=== PATIENT | female | born 1960 | race Caucasian/White ===

== ENCOUNTER → 2017-01-25 | Outpatient (CLI) | payer OTHER ==
[~2017-01-25] MED LIST: ASMIN/60 INH; ASPI-232 PO; CICL8SOL4 TOP; CLR10 PO; COEN1CAP17 PEG; COEN1CAP28 PO; FISH1CAP3 PO; GLUC10007 PO; HYDR2.5L TOP; LEVO137T3 PO; MELO7.5T5 PO; MULT-225 PO; OXYC-57 PO; ROPI1TAB PO; ROPI2TAB6 PO; TRIA1SPR4; VGFVS/24 VAGRING; VNTHFA/IN INH; WARF2TAB PO
--- NOTE | 2017-01-31 11:18 | CODING QUERY NO DIAGNOSIS ---
TREATMENT RENDERED WITHOUT A DIAGNOSIS To promote full compliance with coding requirements relating to patient care, physician participation is requested in all cases of outside sales associate uncertainty. Please assist us with providing a diagnosis/symptom for the test(s) below: A diagnosis/symptom was not documented on your Order. A valid diagnosis/symptom is required to bill all insurances. Please remember that we are unable to code a diagnosis of rule out, probable, possible, questionable, or suspected. Tests that require a diagnosis: DOS: 01/25/17 * BIOPSY CHEST SKIN DIAGNOSIS: Provider Signature: Date: Thank you She[facility] Information Management Once completed, please kindly fax back to [phone] For questions please call [phone]
== END | disposition home or self-care (01) ==
LOC: C.PATHSPEC 17:24
PROVIDERS: ATTEND Plastic Surgery
DX: D09.9 Carcinoma in situ, unspecified (principal)

== ENCOUNTER → 2017-02-05 | Outpatient (CLI) | payer OTHER ==
--- NOTE | 2017-02-05 10:15 | DIAGNOSTIC IMAGING REPORT ---
LEFT KNEE 4 VIEWS INCLUDING BILATERAL STANDING AP VIEWS CLINICAL HISTORY: LEFT KNEE PAIN COMPARISON: 12/17/2015 DISCUSSION: There are progressive osteoarthritic changes involving the left knee with moderate medial joint compartment narrowing. There are small dorsal patellar spurs. There are no acute fractures. There are no destructive lesions. Mild mild to moderate osteophytic changes are also present on the right but to a lesser extent. IMPRESSION: Moderate progressive osteoarthritic changes involving the left knee. Electronically signed by: Manny Britt M.D. 02/05/2017 10:14 AM Dictated Date/Time: 02/05/2017 10:13 AM
== END | disposition home or self-care (01) ==
LOC: C.RDSM 08:55
PROVIDERS: ATTEND Family Medicine
DX: M17.12 Unilateral primary osteoarthritis, left knee (principal)

== ENCOUNTER 2017-08-15 08:05 | Inpatient (IN) | payer OTHER ==
[2017-07-23 09:18] VITALS: BMI 40.0
--- NOTE | 2017-07-23 10:16 | PAT Medication Instructions ---
Service Date Jul 23, 2017. Current Home Medication List Albuterol Hfa (Ventolin Hfa), 2-4 PUFFS INH Q6H PRN for Wheezing Aspirin (Aspir-81), 1 TAB PO DAILY PRN for prevention Coenzyme Q10 (Ubidecarenone) (Co Q 10), 1 TAB PEG QAM Estradiol (Vagifem), 1 TAB VAGRING WK Fish Oil-Cholecalciferol (Fish Oil + D3), 1 CAP PO QAM Glucosamine Sulfate (Glucosamine), 1,000 MG PO QAM Hydrocortisone (Topical) (Hydrocortisone), 1 APPLN TOP DAILY PRN for Itching Levothyroxine Sodium (Levothyroxine Sodium), 1 TAB PO QAM Loratadine (Claritin), 10 MG PO QAM Meloxicam (Mobic), 15 MG PO QAM Mometasone Furoate (Asmanex Twisthaler 60 Met), 2 PUFF INH QAM Multiple Vitamin (Multi-Day Vitamins), 1 TAB PO QAM Ropinirole (Requip), 2 MG PO HS Triamcinolone Acetonide (Nasal (Nasacort Allergy 24Hr), 1 SPRAY NA QAM Medication Instructions For Your Scheduled Surgery -Continue as directed: Estradiol (Vagifem), 1 TAB VAGRING WK - Hold the following medications 2 weeks prior to surgery: Coenzyme Q10 (Ubidecarenone) (Co Q 10), 1 TAB PEG QAM Fish Oil-Cholecalciferol (Fish Oil + D3), 1 CAP PO QAM Glucosamine Sulfate (Glucosamine), 1,000 MG PO QAM - Hold the following medications 5 days prior to surgery per surgeon's instructions: Meloxicam (Mobic), 15 MG PO QAM - Hold the following 24 hours prior to surgery: Hydrocortisone (Topical) (Hydrocortisone), 1 APPLN TOP DAILY PRN for Itching - Do not take after NOON the day prior to surgery: Ropinirole (Requip), 2 MG PO HS - Hold the following medications the morning of surgery: Loratadine (Claritin), 10 MG PO QAM Multiple Vitamin (Multi-Day Vitamins), 1 TAB PO QAM - Take the following medications the morning of surgery with a sip of water OTHERWISE NOTHING TO EAT OR DRINK AFTER MIDNIGHT: Albuterol Hfa (Ventolin Hfa), 2-4 PUFFS INH Q6H PRN for Wheezing (use if needed ; BRING TO HOSPITAL) Aspirin (Aspir-81), 1 TAB PO DAILY PRN for prevention Triamcinolone Acetonide (Nasal (Nasacort Allergy 24Hr), 1 SPRAY NA QAM Levothyroxine Sodium (Levothyroxine Sodium), 1 TAB PO QAM Mometasone Furoate (Asmanex Twisthaler 60 Met), 2 PUFF INH QAM - Take the following medications as scheduled the night before surgery: Albuterol Hfa (Ventolin Hfa), 2-4 PUFFS INH Q6H PRN for Wheezing If you have any questions please call us at [phone] or [phone] or [phone]
[2017-07-23 10:50] LABS: BASO % 0.8 %; BASO ABS # 0.06 K/uL (0-0.2); COMPLETE YES; EOS % 4.9 %; HEMATOCRIT 43.3 % (37-47); IG% 0.5 %; LYMPH % 33.2 %; LYMPH ABS # 2.62 K/uL (1.2-3.4); MEAN CELL VOLUME 93.1 fL (80-100); MEAN CORPUSCULAR HEMOGLOBIN 30.5 pg (25-34); MEAN CORPUSCULAR HGB CONC 32.8 g/dl (32-36); MEAN PLATELET VOLUME 10.7 fL (7.4-10.4); MONO % 4.4 %; NEUT % 56.2 %; PLATELET COUNT 288 K/uL (130-400); RED BLOOD COUNT 4.65 M/uL (4.2-5.4); WHITE BLOOD COUNT 7.88 K/uL (4.8-10.8)
[2017-07-23 10:52] LABS: URINE APPEARANCE CLEAR (CLEAR); URINE BILIRUBIN NEG (NEG); URINE COLOR YELLOW; URINE NITRITE NEG (NEG); URINE PH 6.5 (4.5-7.5); URINE SPECIFIC GRAVITY 1.011 (1.000-1.030); UROBILINOGEN NEG (NEG); ZZUR CULT IF INDIC CLEAN CATCH NO
[2017-07-23 10:53] LABS: MANUAL MICROSCOPIC REQUIRED? NO; REVIEW REQ? NO
[2017-07-23 11:00] LABS: INR 0.9 (0.9-1.1); PROTHROMBIN TIME (PATIENT) 9.4 SECONDS (9.0-12.0)
[2017-07-23 12:44] LABS: BUN/CREATININE RATIO 20.1 (10-20); CALCIUM 9.6 mg/dl (8.5-10.1); CREATININE 0.71 mg/dl (0.60-1.20); POTASSIUM 3.7 mmol/L (3.5-5.1)
--- NOTE | 2017-07-24 17:58 | HISTORY & PHYSICAL EXAMINATION ---
DATE OF ADMISSION: 08/15/2017 PREOPERATIVE HISTORY AND PHYSICAL CHIEF COMPLAINT: Left knee pain. HISTORY OF PRESENT ILLNESS: This 57-year-old white female presents to the office with complaints of left knee pain that she has had for several years. Pain has become worse over the last 6-9 months. It is worse with weightbearing. It is affecting her ADLs. She occasionally uses a cane for ambulation. She has tried oral anti-inflammatories, oral pain medications, activity modification, and assistive devices without improvement. Preoperative x-rays have been obtained. She elects to proceed with left total knee arthroplasty in hopes of alleviating her pain. PAST MEDICAL HISTORY: Significant for allergic rhinitis, osteoarthritis, asthma, hypothyroidism, history of heart murmur, sleep apnea, use of CPAP, low back pain, history of skin cancer, obesity, restless legs syndrome, polycystic ovarian disease, and sciatica. PREVIOUS SURGERIES: Squamous cell excision from her chest, eye duct surgery, appendectomy, colonoscopy, and wisdom tooth extraction. FAMILY HISTORY: Significant for asthma, skin cancer, heart disease, history of CABG in her father, colon cancer, diabetes, hypertension, hypothyroidism, macular degeneration, and arthritis. SOCIAL HISTORY: The patient is employed at [employer]. No tobacco use, occasional ETOH use. . ALLERGIES: KNOWN ALLERGY TO ACCOLATE, AMOXICILLIN AND PENICILLIN WHICH CAUSED A PUFFY SENSATION IN HER LIPS. She states that resolves by drinking water. ALSO, NICKEL ALLERGY AND FLONASE ALLERGY. She states propofol was not effective for her during her colonoscopy. CURRENT MEDICATIONS: Synthroid 137 mcg p.o. every other day, Asmanex Twisthaler 1 inhalation twice a day, Meloxicam 15 mg p.o. daily, ropinirole 2 mg 1 tablet p.o. daily before bedtime, Singulair 10 mg p.o. q.p.m., loratadine 10 mg p.o. daily, albuterol inhaler 2 puffs 4 times a day as needed, topical estradiol vaginal tablet as directed, Nasacort Allergy 1 spray in each nostril daily, lorazepam 2 mg p.o. daily p.r.n., hydrocortisone topical 2.5% cream applied topically daily p.r.n., aspirin 81 mg p.o. daily, and vitamin D daily. REVIEW OF SYSTEMS: Significant for above-stated conditions, otherwise unremarkable. PHYSICAL EXAMINATION: GENERAL: Well-developed, well-nourished middle aged white female, in no acute distress. Sitting in a chair. Alert and oriented. SKIN: Warm and dry with good turgor. No rashes or lesions. No ecchymosis or erythema. HEENT: Normocephalic, atraumatic. EYES: PERRLA, EOMI. Nares patent bilaterally without turbinate enlargement. Oropharynx without erythema or exudate. No lesions noted. Uvula midline. Oral mucosa moist. Good dentition. HEART: RRR, soft. 2/6 systolic ejection murmur noted along the left sternal border. No gallops or rubs. LUNGS: Clear to auscultation bilaterally. No crackles, rhonchi or wheezing. Good air movement. ABDOMEN: Bowel sounds present x4, soft, nontender. No organomegaly. No masses. MUSCULOSKELETAL: Left knee has no intraarticular effusion. She lacks approximately 4-5 degrees of terminal extension. Flexion to greater than 100 degrees. Strength is 5/5 with fair quad tone. No defect in the patellar tendon or quadriceps tendon. Stable collateral ligaments. Varus alignment. Ambulatory with a moderately antalgic gait. NEUROLOGIC: Cranial nerves II through XII are intact. Gross sensation is intact across the lower extremities by soft touch. DATA: Radiographic imaging previously obtained shows degenerative joint disease of the left knee. Periarticular osteophytes, subchondral sclerosis, and joint space narrowing are all present. IMPRESSION: Left knee end-stage degenerative joint disease. PLAN: Informed written consent to proceed with left total knee arthroplasty will be obtained on the day of surgery. Consent form has already been reviewed. She has a possible ALLERGY TO NICKEL AND STAINLESS STEEL. We will use Oxinium implants. She will obtain medical clearance from her PCP. Preoperative lab work, EKG, and chest x-ray have been ordered. We did discuss her mild localized reaction to penicillin in the past. I do think Ancef would be reasonable. This was discussed with her. She does take Requip at night. She would like to use her own prescription while in the hospital. Order can be written. She may require an extra dosing of 1 mg throughout the day due to her prolonged confinement in bed. We also discussed this. Anticipate discharge to home with 2 weeks of home health services. She already has a walker, cane, and raised toilet seat.
[~2017-08-15] VITALS: Ht 160 cm; Wt 103.3 kg
[2017-08-15] VITALS (7 sets, daily range): BP systolic 112–161; BP diastolic 71–91; PULSE 60–86; TEMP 36.6–37; O2SAT 91–97; Ht 160 cm; Wt 103.3 kg
[~2017-08-15 08:05] MED LIST changes: +BUPIVACAINE 0.5 % 5 MG/1 ML PF 10ML VIAL ONE; +CEFAZOLIN 2000 MG/60 ML D5W 60 ML IV SCH; -CICL8SOL4 TOP; -COEN1CAP28 PO; +LACTATED RINGER'S 1000ML 1,000 ML IV SCH; +LACTATED RINGER'S 1000ML 500 ML IV ONE; +LACTATED RINGER'S 1000ML IV SCH; -OXYC-57 PO; -ROPI1TAB PO; +ROPIVACAINE 5MG/ML 30 ML 150 MG, BUPIVACAINE/EPINEPHR 0.5% MPF 30 ML, KETOROLAC TROMETH... INFIL SCH; +TRANEXAMIC ACID AMP 1,000 MG in NSS 100ML IV SCH; -WARF2TAB PO; +[UNRECOGNIZED DRUG - REMARK] SCH
--- NOTE | 2017-08-15 08:20 | History & Physical Bridge Note ---
H&P Re-Evaluation Bridge Note: I have examined the patient, reviewed the History & Physical and in the interval since the performance of the History & Physical I have noted the following changes of clinical significance:consent reviewed. No changes noted
[2017-08-15] MEDS ORDERED: COEN1CAP28 PO (08:42)
[2017-08-15] MEDS ORDERED: ROPI1TAB PO (08:47)
[2017-08-15] MEDS ORDERED: CICL8SOL4 TOP (08:47)
[2017-08-15] MEDS ORDERED: LIDOCAINE HCL 2% 2 ML VIAL (20MG/ML) ONE (09:17)
[2017-08-15] MEDS ORDERED: PROPOFOL IV EMULSION 10 MG/ML 20 ML VIAL IV ONE ×4 (09:17→11:58)
[2017-08-15] MEDS ORDERED: MIDAZOLAM HCL 1 MG/ML 2ML VIAL ONE ×2 (09:17→11:08)
[2017-08-15] MEDS ORDERED: FENTANYL CITRATE INJ 50 MCG/1 ML 2 ML VIAL ONE ×2 (09:17→11:22)
[2017-08-15] MEDS ORDERED: ONDANSETRON INJ 2 MG/ML 2 ML VIAL ONE (09:17)
[2017-08-15] MEDS ORDERED: ONDANSETRON INJ 2 MG/ML 2 ML VIAL IV PRN ×2 (09:30→13:00)
[2017-08-15] MEDS ORDERED: EpHEDrine SULFATE INJ 50 MG/ML AMP IV PRN (09:30)
[2017-08-15] MEDS ORDERED: FENTANYL CITRATE INJ 50 MCG/1 ML 2 ML VIAL IV PRN (09:30)
[2017-08-15] MEDS ORDERED: ATROPINE SULFATE 0.1 MG/ML 5ML SYR IV PRN (09:30)
[2017-08-15] MEDS ORDERED: POVIDONE-IODINE OP SOLN 30 ML BTL ONE (10:45)
[2017-08-15] MEDS ORDERED: ORTHO JOINT ANESTHETIC ONE (10:45)
[2017-08-15] MEDS ORDERED: KETAMINE HCL INJ 50 MG/ML 10 ML VIAL ONE (12:04)
[2017-08-15] MEDS ORDERED: EpHEDrine SULFATE 50MG/5ML SYR ONE (12:41)
--- NOTE | 2017-08-15 12:47 | [facility] Post Operative Brief Note ---
Immediate Operative Summary Operative Date Aug 15, 2017. Pre-Operative Diagnosis Left Knee End-Stage Degenerative Joint Disease Post-Operative Diagnosis Left Knee End-Stage Degenerative Joint Disease Procedure(s) Performed Left Total Knee Arthroplasty Surgeon Dr. Richardson Resistor Coater Surgeon(s) Dr. Grimm (Fellow)/ CHAD Dorantes Estimated Blood Loss 50 ml Findings medial djd with varus Fluids (cc crystalloids) 1400cc Specimens A. Left Knee Bone and Tissue Drains none Anesthesia spinal/obturator block Complication(s) None Disposition Recovery Room / PACU
[2017-08-15] MEDS ORDERED: ALUMINUM/MAGNESIUM/SIMETH (MAALOX MAX) 30 ML UDC PO PRN (13:00)
[2017-08-15] MEDS ORDERED: METOCLOPRAMIDE HCL INJ 5 MG/ML 2 ML VIAL IV PRN (13:00)
[2017-08-15] MEDS ORDERED: ACETAMINOPHEN 325 MG TAB PO PRN (13:00)
[2017-08-15] MEDS ORDERED: ALBUTEROL HFA 8 GM INHALER INH PRN (13:00)
[2017-08-15] MEDS ORDERED: BISACODYL 10 MG SUPP PR PRN (13:00)
[2017-08-15] MEDS ORDERED: MoRPHine SULFATE 2 MG/ML CARP IV PRN (13:00)
[2017-08-15] MEDS ORDERED: MAGNESIUM HYDROXIDE SUSP 30 ML UDC PO PRN (13:00)
[2017-08-15] MEDS ORDERED: DiphenhydrAMINE HCL 50 MG/ML VIAL IV PRN (13:00)
--- NOTE | 2017-08-15 13:01 | [facility] Operative Report ---
Operative Report Operative Date Aug 15, 2017. Pre-Operative Diagnosis Left Knee End-Stage Degenerative Joint Disease Post-Operative Diagnosis Left Knee End-Stage Degenerative Joint Disease Procedure(s) Performed Left Total Knee Arthroplasty Surgeon Dr. Richardson Speeder Frame Tender Surgeon(s) Dr. Grimm (Fellow)/ CHAD Ryan Estimated Blood Loss 50 ml Findings Left knee DJD Fluids 1400cc Specimens A. Left Knee Bone and Tissue Drains none Anesthesia spinal/obturator block Complication(s) None Disposition Recovery Room / PACU Indications This 57-year-old white female presented the office with complaints of intractable left knee pain. She had tried conservative care measures including activity modification, oral pain medication, oral anti-inflammatories, and cortisone injections without relief. She elected to proceed with surgical intervention after being educated about potential risks and outcomes. Preoperative imaging was obtained. Description of Procedure Patient was administered a spinal anesthetic and then taken to the operating room where she was given sedation. She was prepped and draped in usual sterile fashion. Please see Dr. Richardson's operative report for specifics of the procedure. I was present for the entire case from initial patient positioning through final wound closure. Assistance was provided in tissue traction, hemostasis, trial implant placement, final implant placement, and final wound closure. Patient was taken to the recovery room in satisfactory condition. I attest to the content of the Intraoperative Record and any orders documented therein. Any exceptions are noted below.
--- NOTE | 2017-08-15 13:07 | OPERATIVE REPORT ---
DATE OF OPERATION: 08/15/2017 PREOPERATIVE DIAGNOSIS: Osteoarthritis with varus flexion deformity, left knee. POSTOPERATIVE DIAGNOSIS: Same. OPERATION PERFORMED: Cemented left total knee replacement using Oxinium implant by [employer]. SURGEON: Dr. Richardson. TOLL SERVICE OBSERVER: Alfa. SECOND TOLL SERVICE OBSERVER: Ja Santo PA-C. ESTIMATED BLOOD LOSS: 50 mL. CRYSTALLOID: 1400 mL. PERIOPERATIVE SITUATION: Medically cleared female with intractable knee pain has failed conservative management. She has questionable metal allergy, so it was elected to use a Journey II [employer] knee with Oxinium. PROCEDURE: The patient appropriately identified, site verified, consent verified. Antibiotics confirmed as being given, as well as TXA. The left lower extremity was prepped and draped in usual routine fashion. 44 size tourniquet was required. Tourniquet was inflated to 300 mmHg for a total of approximately 65 minutes. Midline exposure utilized. Parapatellar arthrotomy performed. Arthrotomy performed, synovectomy completed, infrapatellar contracture release. Good exposure obtained. Distal femur entered. Distal femur resected at the 0 benja. The femur was then sized to a size 4. Proximal tibia cut 9 mm off the normal side. The extension gap was excellent. Femur was then again sized to a 4, appropriate cutting block applied and the anterior and posterior condylar and chamfer cuts made, anterior cut 1, anterior cut 2, posterior cut 3, chamfer 4 and chamfer 5 completed. The flexion gap was then checked, it was excellent. The Orthomix was then injected in the posterior capsule. The box cut was then completed by inserting the trial implant and then the casing for the reaming of the box cut. The size 4 trial fit well. The size 3 tibia was then broached to a size 3 with rotation marked appropriately just on the medial third of the tubercle insertion. This allowed excellent alignment. Poly's were then trialed from 11-13, the 13 took away a little bit of hyperextension and increased mid range flexion and so that was elected to be used. The patella was then freehand cut. It was very small. I left about 15-16 mm. Seating hole was then made for the 32 patella which tracked well. All trial implants were then removed. The wound was irrigated copiously with Betadine Pulsavac, Orthomix was then injected. Cement was then mixed and the permanents cemented into position, tibia first, followed by femur, followed by reduction with trial spacer, followed by the patella. After 12 minutes, the tourniquet deflated. After 14 minutes the knee was then irrigated and minor bleeding controlled with electrocautery. The knee was then ranged. It was stable in all planes. The knee was then dislocated. The trial poly removed, the permanent poly seated and clicked into position. Excellent stability was obtained. Excellent reduction obtained and the patella tracked well. The wound was irrigated one final time with Betadine Pulsavac and then closed with #1 Ethibond, #1 Vicryl, 2-0 Vicryl and stainless steel clips. Appropriate dressing applied. DVT prophylaxis will be with Coumadin. SUMMARY OF IMPLANTS: Journey II [employer] total knee arthroplasty, left Oxinium size 4 femur, size 3 tibia, size 13 poly posterior cruciate substituting and patella size 32. Two bags of Palacos G cement. I attest to the content of the Intraoperative Record and any orders documented therein. Any exception s are noted below.
--- NOTE | 2017-08-15 13:31 | DIAGNOSTIC IMAGING REPORT ---
TWO VIEWS LEFT KNEE CLINICAL HISTORY: Postoperative examination. FINDINGS: AP and crosstable lateral portable views of the left knee are obtained. A left knee arthroplasty is in near anatomic alignment. There has been undersurface remodeling of the patella. No acute fracture is seen. There are expected postoperative changes around the knee including skin clips, soft tissue edema, and subcutaneous gas. IMPRESSION: Expected postoperative changes status post left knee arthroplasty. No acute fracture is seen. Electronically signed by: Jared Dowell M.D. 08/15/2017 1:29 PM Dictated Date/Time: 08/15/2017 1:29 PM
--- NOTE | 2017-08-15 13:37 | Anesthesiology Progress Note ---
Anesthesia Post Op Note Date & Time Aug 15, 2017 at 13:36 Vital Signs Pain Intensity: 0 Vital Signs Past 12 Hours Date Time Temp Pulse Resp B/P (MAP) Pulse Ox O2 Delivery O2 Flow Rate FiO2 08/15/17 13:30 62 16 104/66 99 Nasal Cannula 2 08/15/17 13:25 60 17 108/76 99 Nasal Cannula 2 08/15/17 13:15 70 17 123/69 99 Nasal Cannula 2 08/15/17 13:05 68 15 118/74 98 Nasal Cannula 2 08/15/17 12:56 36.7 70 13 122/81 98 Nasal Cannula 2 08/15/17 08:25 37 86 20 161/91 96 Room Air Notes Mental Status: alert / awake / arousable, participated in evaluation Pt Amnestic to Procedure: Yes Nausea / Vomiting: adequately controlled Pain: adequately controlled Airway Patency, RR, SpO2: stable & adequate BP & HR: stable & adequate Hydration State: stable & adequate Neuraxial Anesthesia: was administered, sensory block is resolving Anesthetic Complications: no major complications apparent
--- NOTE | 2017-08-15 13:44 | Progress Note ---
Progress Note Date of Service Aug 15, 2017. Progress Note Postop check patient seen in recovery room. She denies chest pain shortness breath fever chills nausea vomiting or headache. Vital signs stable afebrile. Calves nontender has slight movement in her lower extremities indicating the spinal was wearing off. Postop x-rays look excellent. Assessment doing well status post total knee replacement left lower extremity. Continue with care pathway. Dictated not read.
[2017-08-15] MEDS ORDERED: MoRPHine SULFATE 4 MG/ML 1 ML CARP\\VIAL IV PRN (15:00)
[2017-08-15] MEDS ORDERED: D5W AND 1/2NSS + 20MEQ KCL 1,000 ML IV SCH (15:30)
[2017-08-15] MEDS ORDERED: NURSING VERBAL MED ORDER ONE ×2 (15:30→20:30)
[2017-08-15] MEDS ORDERED: TRANEXAMIC ACID INJ 1,000 MG in SODIUM CHLORIDE 0.9% 100ML 100 ML IV SCH (16:00)
[2017-08-15] MEDS: ROPINIROLE HCL 1 MG TAB PO SCH ×2 (17:59→23:03)
[2017-08-15] MEDS: FERROUS GLUCONATE 324 MG TAB PO SCH (18:01)
[2017-08-15] MEDS: KETOROLAC TROMETHAMINE 30 MG/ML VIAL IV. SCH ×2 (18:02→23:26)
[2017-08-15] MEDS: CEFAZOLIN IV 2,000 MG in DEXTROSE 5% 50ML 50 ML IV SCH (20:23)
[2017-08-15] MEDS: DOCUSATE SODIUM 100 MG CAP PO SCH (20:23)
[2017-08-16 03:08] VITALS: BP 106/69; PULSE 64; TEMP 36.5; O2SAT 93
[2017-08-16] MEDS: CEFAZOLIN IV 2,000 MG in DEXTROSE 5% 50ML 50 ML IV SCH (03:08)
[2017-08-16] MEDS: LEVOTHYROXINE 137 MCG TAB PO SCH (05:40)
[2017-08-16] MEDS: KETOROLAC TROMETHAMINE 30 MG/ML VIAL IV. SCH ×2 (05:40→11:40)
--- NOTE | 2017-08-16 07:15 | PROGRESS NOTE ---
DATE: 08/16/2017 HISTORY OF PRESENT ILLNESS: Postop day #1, status post left total knee replacement. The patient denies any chest pain, shortness of breath, fever, chills, nausea, vomiting or headache. States she slipped her usual fashion, which is not very good based on her sleep apnea, uses a CPAP machine. She states her pain is well managed. PHYSICAL EXAMINATION: Vital signs are stable. She is afebrile. Neurovascular check femoral sciatic nerve is normal. Wound dressing clean, dry and intact. Calves nontender bilaterally. LABORATORY DATA: A.m. labs are pending. ASSESSMENT AND PLAN: Doing well status post left total knee replacement. Physical therapy, occupational therapy this morning and potential discharge later today if she does well. [place] environmental services manager to evaluate. Discharge on 4 mg Coumadin if INR is less than 1.5, 2 mg of INR is greater than 1.5. Potential discharge later today. Conditional on how well she does with physical therapy, occupational therapy.
[2017-08-16 07:20] VITALS: BP 97/61; PULSE 64; TEMP 36.6; O2SAT 95
--- NOTE | 2017-08-16 07:21 | DISCHARGE SUMMARY ---
CHIEF COMPLAINT: Left knee pain. HISTORY OF PRESENT ILLNESS: A 57-year-old female admitted for elective left total knee replacement. She notes that her hospital course has been relatively uneventful. She denies any chest pain, shortness of breath, fever, chills, nausea or vomiting. PAST MEDICAL HISTORY: Remarkable for allergic rhinitis, osteoarthritis, hypothyroidism, heart murmur, sleep apnea, uses CPAP, skin cancer, obesity, restless leg syndrome, polycystic ovarian disease and sciatica. PAST SURGICAL HISTORY: Include squamous cell excision from her chest, eye duct surgery, appendectomy, colonoscopy and wisdom tooth extraction. FAMILY HISTORY: Remarkable for asthma, skin cancer, heart disease, history of coronary artery disease, colon cancer, diabetes, hypertension, hypothyroidism, macular degeneration and arthritis. SOCIAL HISTORY: Reveals the patient is an employee of [employer]. No tobacco or major alcohol use. She is . ALLERGIES: ACCOLATE, AMOXICILLIN, PENICILLIN WHICH CAUSES POPPING SENSATION IN HER LIPS. SHE ALSO NOTES THAT SHE HAS A NICKEL ALLERGY AND FLONASE ALLERGY. She states propofol was not effective during her colonoscopy. PREOPERATIVE MEDICATIONS: Include Synthroid, Asmanex, Meloxicam, ropinirole, Singulair, loratadine, albuterol, estradiol, Nasacort, lorazepam, hydrocortisone topical cream p.r.n., aspirin 81 mg daily, and vitamin D. She will discontinue the Meloxicam and add p.r.n. narcotic see prescription and Coumadin to keep INR 1.8-2.2. She will be discharged on 4 mg if INR is less than 1.5 and 2 mg if INR is greater than 1.5. REVIEW OF SYSTEMS: Noncontributory. ASSESSMENT AND PLAN: Doing reasonably well status post left total knee replacement. She is a little bit insecure about going home today. We will see how she does with physical therapy, occupational therapy and if she does well enough, she can be discharged later today. [place] services[place] Discharge on 4 mg Coumadin if INR is less than 1.5 and 2 mg if INR is greater than 1.5. MTDD
[2017-08-16 07:29] LABS: HEMATOCRIT 36.5 % (37-47); MEAN CELL VOLUME 91.3 fL (80-100); MEAN CORPUSCULAR HEMOGLOBIN 29.8 pg (25-34); MEAN CORPUSCULAR HGB CONC 32.6 g/dl (32-36); MEAN PLATELET VOLUME 10.3 fL (7.4-10.4); PLATELET COUNT 288 K/uL (130-400); WHITE BLOOD COUNT 18.04 K/uL (4.8-10.8)
[2017-08-16] MEDS ORDERED: DEXAMETHASONE INJ 10 MG in SYRINGE 0 ML IV ONE (07:30)
[2017-08-16 07:40] LABS: INR 0.9 (0.9-1.1); PROTHROMBIN TIME (PATIENT) 9.8 SECONDS (9.0-12.0)
[2017-08-16 08:03] LABS: BUN/CREATININE RATIO 21.9 (10-20); CALCIUM 8.8 mg/dl (8.5-10.1); CREATININE 0.81 mg/dl (0.60-1.20); POTASSIUM 4.1 mmol/L (3.5-5.1)
--- NOTE | 2017-08-16 08:18 | Anesthesiology Progress Note ---
Anesthesia Post Op Note Date & Time Aug 16, 2017 at 08:18 Vital Signs Pain Intensity: 3.0 Vital Signs Past 12 Hours Date Time Temp Pulse Resp B/P (MAP) Pulse Ox O2 Delivery O2 Flow Rate FiO2 08/16/17 07:20 36.6 64 18 97/61 (73) 95 Room Air 08/16/17 03:08 36.5 64 16 106/69 (81) 93 Room Air 08/15/17 23:45 36.9 69 18 115/74 (88) 94 Room Air 08/15/17 23:35 Room Air Notes Mental Status: alert / awake / arousable, participated in evaluation Pt Amnestic to Procedure: Yes Nausea / Vomiting: adequately controlled Pain: adequately controlled Airway Patency, RR, SpO2: stable & adequate BP & HR: stable & adequate Hydration State: stable & adequate Neuraxial Anesthesia: was administered, sensory block resolved Anesthetic Complications: no major complications apparent
[2017-08-16] MEDS: PANTOprazole SOD 40 MG TAB PO SCH (08:54)
[2017-08-16] MEDS: FERROUS GLUCONATE 324 MG TAB PO SCH ×3 (08:54→18:09)
[2017-08-16] MEDS: DOCUSATE SODIUM 100 MG CAP PO SCH ×2 (08:55→20:38)
[2017-08-16] MEDS: MULTIVITAMIN TAB PO SCH (08:55)
[2017-08-16] MEDS: LORATADINE 10 MG TAB PO SCH (08:55)
[2017-08-16] MEDS: MOMETASONE FUROATE 14 PUFF/1 INHALER INH SCH (08:56)
[2017-08-16] MEDS ORDERED: MULTIVITAMIN TAB PO SCH (09:00)
--- NOTE | 2017-08-16 09:02 | Orthopedic Progress Note ---
Orthopedic Progress Note Date of Service Aug 16, 2017. Subjective Post OP Day: 1 Reports: feeling well, complaints (Patient states that she experiencs a "dizzy spell" early this morning while sitting on the edge of her bed. No current complaints ), Denies: chest pain, SOB, nausea / vomiting Objective calves soft nontender, N/V intact, capillary refill less than 2 sec., dressing C /D/I, incision C/D/I, A&O x3, toes mobile Date Time Temp Pulse Resp B/P (MAP) Pulse Ox O2 Delivery O2 Flow Rate FiO2 08/16/17 07:25 Room Air 08/16/17 07:20 36.6 64 18 97/61 (73) 95 Room Air 08/16/17 03:08 36.5 64 16 106/69 (81) 93 Room Air 08/15/17 23:45 36.9 69 18 115/74 (88) 94 Room Air 08/15/17 23:35 Room Air 08/15/17 20:03 37.0 74 20 112/74 (87) 91 Room Air 08/15/17 16:20 67 18 126/80 (95) 08/15/17 15:33 62 18 129/85 (100) 08/15/17 15:15 Nasal Cannula 2.0 08/15/17 14:46 60 18 116/71 (86) 08/15/17 14:15 Nasal Cannula 2.0 08/15/17 14:15 97 Nasal Cannula 2.0 08/15/17 14:15 36.6 60 16 126/74 (91) 97 Nasal Cannula 2.0 08/15/17 14:00 63 16 107/66 98 Nasal Cannula 2 08/15/17 13:45 36.9 61 17 115/68 99 Nasal Cannula 2 08/15/17 13:30 62 16 104/66 99 Nasal Cannula 2 08/15/17 13:25 60 17 108/76 99 Nasal Cannula 2 08/15/17 13:15 70 17 123/69 99 Nasal Cannula 2 08/15/17 13:05 68 15 118/74 98 Nasal Cannula 2 08/15/17 12:56 36.7 70 13 122/81 98 Nasal Cannula 2 Laboratory Results 24 Hours: Test 08/16/17 07:07 Hematocrit 36.5 % Hemoglobin 11.9 g/dL Prothromb Time International Ratio 0.9 Prothrombin Time 9.8 SECONDS Assessment & Plan Assessment: s/p left TKA post-op day #1, doing well Plan: - Dressing changed and incisonal wound vac applied - PT/OT this AM. - regular diet - WBAT - post-op abx completed - DVT prophylaxis: coumadin - PRESTON shipman and SCDs - f/u in office in one week - home today pending PT/OT evaluations and patient symptoms Discharge Planning Discharge Planning: home Pain Management: Percocet Therapy: Physical Therapy (Home PT to begin in one week )
[2017-08-16] MEDS ORDERED: OXYC-57 PO (09:45)
[2017-08-16] MEDS ORDERED: WARF2TAB PO (09:45)
--- NOTE | 2017-08-16 09:48 | Discharge Instructions ---
Discharge Instructions Date of Service Aug 16, 2017. Admission Reason for Admission: Left Knee Degenerative Joint Disease Discharge Discharge Diagnosis / Problem: Left knee s/p total knee replacement Discharge Goals Goal(s): Decrease discomfort, Improve function, Increase independence Activity Recommendations Activity Limitations: as noted below Lifting Limitations: gradually increase as tolerated Exercise/Sports Limitations: until after follow-up appointment Shower/Bathe: keep incision dry Driving or Machine Use: No driving until cleared by Dr. Richardson Weightbearing Status: Left weightbearing (as tolerated) . Instructions / Follow-Up Instructions / Follow-Up New Medicine: * You will likely be taking one or more of these medications: 1. Percocet - Take, as directed, when you need it, every four to six hours to control your pain. 2. Coumadin - Thins your blood to lessen the chance of forming a blood clot. The dose of this is different for each person and is based on your blood tests that are done twice a week. * The most common side effects of pain medicine and iron are nausea and constipation. If nausea or constipation is too much of a problem or if you have any questions about your new medicines or doses, call [facility] at . We will try to help you manage these issues. VERY IMPORTANT TO READ AND REVIEW" Blood Clots and Blood Thinning Medicine: * You are given Coumadin during the immediate post-operative period to lessen the risk of blood clots forming in your legs and/or lungs. Coumadin is usually given for six weeks after surgery. * The prescription is for 2 mg tablets. At discharge, you should understand your dose and take it all at the same time every day, preferably after dinner. * You need to get your blood checked 1 - 2 times per week for six weeks or as directed. * If your dose needs to change, we will call you. Do not take your medication on the day of the blood test until we call you. Pain: * The immediate post-operative period after knee replacement surgery is often quite painful. * You are given a prescription for pain medicine. You should take it, as directed, when you need it, especially before physical therapy and before going to bed. Pain that interferes with sleep is very common and can last several months. * You will likely need pain medicine for the first four to six weeks. It will not stop all of the pain. The pain will lessen and as you feel better, you may change to milder pain medicine such as Tylenol. * The most common side effects of pain medicine are nausea and constipation, so don't take more than you need. Physical Therapy: * You will have physical therapy two or three times each week for four to six weeks after your surgery in order to regain your knee range of motion and to retrain your knee to work properly. * It is just as important to make sure you are getting your knee perfectly straight as it is to regain your knee bend. * Taking a pain pill an hour before therapy can help you have a more productive and comfortable therapy session if needed. Home Exercise: * You were shown a series of exercises (heel props, heel slides, etc.) in the hospital. Do these exercises three to four times each day including the exercises you were shown in physical therapy. Walking: * Get up and walk several times each day. For the first four weeks, try not to stand or walk for more than one hour at a time. If you do stand or walk for more than one hour, you will not hurt anything, but your knee and leg will likely swell. * As you feel comfortable, you may change from the walker or crutches to a cane and then to independent walking. SELF CARE INSTRUCTIONS AFTER TOTAL KNEE REPLACEMENT A. You may need to continue a physical therapy program after discharge from the hospital. There are several options available to you. Your doctor will assist you in selecting the best one for you. 1. An out-patient facility 2 to 3 times a week for therapy or home therapy. 2. Continue working on all exercises taught to you in the hospital. Your goals should be to increase bending of your knee to 90 degrees and beyond and to fully straighten your knee. B. You may progress at your own pace from walking with a walker or crutches to a cane; then to no assistive devices. C. Make walking a part of your daily routine. Be up as much as comfortable with rest periods throughout the day. Rest with leg elevation is very important. Use the ice wrap frequently for the first 3-4 weeks. D. There are no restrictions on activities. You may ride in a car, shop, participate in tile layer and all social activities. E. Wear the long elastic stockings (PRESTON hose) 20 hours a day for six weeks after surgery. They can be removed several times a day for laundering and for a shower. F. Do not place a pillow behind your knee when resting. A pillow at your ankle is okay. VERY IMPORTANT TO READ AND REVIEW A. Take Coumadin, Aspirin or Lovenox (blood thinning medications) as directed by your doctor. If on Coumadin, have a pro-time (blood test) drawn according to your doctor's instructions. This will tell the doctor how well the Coumadin is thinning your blood. 1. YOU WILL BE GIVEN AN ORDER AT DISCHARGE FOR PT/INR (BLOOD WORK). PLEASE HAVE THIS DONE INSTRUCTED. PLEASE CALL OUR OFFICE AFTER YOUR BLOODWORK IS COMPLETE SO WE CAN TRACK YOUR RESULTS. IF YOU ARE GOING TO OUTPATIENT PHYSICAL THERAPY, YOU WILL NEED TO GO TO OUTPATIENT TESTING TO HAVE IT DRAWN. B. There are a few signs you need to watch for after you are home. Call [facility] if you notice any of the followin. Increased severe knee pain. Some pain is expected especially when you exercise. 2. Increased swelling in your leg or knee; pain or swelling of the calf muscle in either lower leg. 3. Any fluid drainage from the incision. 4. Shortness of breath or chest pain. C. Please call [facility] at if you have any concerns or questions about your operation or recovery. The doctor or his nurse will return your call promptly. D. You must take antibiotics before dental work, bladder, bowel or other surgery. Call the office to obtain a prescription at least 2 days prior to your appointment. * CALL IF INCREASED PAIN, REDNESS, DRAINAGE OR FEVER GREATER THAT 101. * Sutures should be removed 12-14 days after surgery unless you are on chronic steriods, then it will be 14-18 days after surgery. Call your doctor if: * Temperature above 101 degrees F. * Pain not relieved by pain medicine ordered. * Increased drainage or redness from incision. * Notify your doctor with any questions or concerns. Current Hospital Diet Patient's current hospital diet: Regular Diet Discharge Diet Recommended Diet: Regular Diet Procedures Procedures Performed: Left Total Knee Arthroplasty Pending Studies Studies pending at discharge: no Medical Emergencies . Who to Call and When: Medical Emergencies: If at any time you feel your situation is an emergency, please call 911 immediately. . Non-Emergent Contact Non-Emergency issues call your: Primary Care Provider, Surgeon Call Non-Emergent contact if: temperature is above 101, wound has increased drainage, wound has increased redness, wound has increased pain, you have any medication questions . "Provider Documentation" section prepared by Ja Santo PA-C. . VTE Core Measure Inpt VTE Proph given/why not?: Warfarin (Coumadin), T.E.D. Stockings, SCD's [place] Drug Monitoring Program Search Results: no issues identified
[2017-08-16] MEDS: OXYCODONE HCL IR 5 MG TAB (IMMEDIATE RELEASE) PO PRN ×3 (11:41→23:26)
[2017-08-16 12:05] VITALS: BP 125/84; PULSE 71; TEMP 37; O2SAT 95
[2017-08-16] MEDS ORDERED: WARFARIN SOD 5 MG TAB PO SCH (13:30)
[2017-08-16 15:37] VITALS: BP 134/84; PULSE 80; TEMP 37; O2SAT 93
[2017-08-16] MEDS ORDERED: WARFARIN SOD 5 MG TAB PO ONE (16:00)
[2017-08-16] MEDS: ROPINIROLE HCL 1 MG TAB PO SCH ×2 (18:44→23:25)
[2017-08-16 23:30] VITALS: BP 130/75; PULSE 70; TEMP 37; O2SAT 94
[2017-08-17] MEDS: OXYCODONE HCL IR 5 MG TAB (IMMEDIATE RELEASE) PO PRN ×2 (03:38→08:50)
[2017-08-17] MEDS: LEVOTHYROXINE 137 MCG TAB PO SCH (05:40)
[2017-08-17 06:28] LABS: PROTHROMBIN TIME (PATIENT) 10.8 SECONDS (9.0-12.0)
--- NOTE | 2017-08-17 07:17 | PROGRESS NOTE ---
DATE: 08/17/2017 Postop day #2 status post left total knee replacement. The patient is resting comfortably in bed. She liked the Toradol better than the Percocet; however, the Percocet does control her pain. She denies chest pain, shortness of breath, fever, chills, nausea, vomiting or headache. She lies with her hip flexed, externally rotated, and her knee flexed. I have asked her to not lie like that, she needs to focus more on extension. She states she understands. Vital signs are stable. She is afebrile. Wound dressing, VAC clean, dry and intact. Neurovascular check, femoral sciatic nerve is normal. Calves are nontender. Abdomen soft, nontender. A.m. labs reveal INR 1.0. ASSESSMENT: Status post left total knee replacement. Pain is well managed. She is ambulatory. At this point in time, can be discharged today. Was a little hesitant yesterday based on insecurity. Can be discharged today.
--- NOTE | 2017-08-17 07:21 | DISCHARGE SUMMARY ---
ADDENDUM The patient was a little bit insecure yesterday to leave, felt a little lightheaded from time to time. At this point in time, that is all gone. Her pain is reasonably managed by the Percocet. I have asked her to use MiraLax to prevent constipation. Her INR today is 1.0. She will be discharged on 4 mg and check PT/INR on Sunday. Follow up in 1 week for wound VAC removal, next week Sunday or , that has already been set up and the time has been established, she has it in her record. Follow up then. Advised concerning Coumadin use, 4 mg at discharge.
[2017-08-17 07:30] VITALS: BP 107/73; PULSE 69; TEMP 37; O2SAT 99
[2017-08-17 07:33] VITALS: BP 130/75; PULSE 70; TEMP 37; O2SAT 94
[2017-08-17] MEDS ORDERED: WARFARIN SOD 7.5 MG TAB PO ONE ×2 (08:00→16:00)
[2017-08-17] MEDS: FERROUS GLUCONATE 324 MG TAB PO SCH (08:49)
[2017-08-17] MEDS: DOCUSATE SODIUM 100 MG CAP PO SCH (08:49)
[2017-08-17] MEDS: MOMETASONE FUROATE 14 PUFF/1 INHALER INH SCH (08:49)
[2017-08-17] MEDS: MULTIVITAMIN TAB PO SCH (08:49)
[2017-08-17] MEDS: PANTOprazole SOD 40 MG TAB PO SCH (08:49)
[2017-08-17] MEDS: LORATADINE 10 MG TAB PO SCH (08:49)
== END 2017-08-17 11:40 | disposition home health service (06) | DRG 470 ==
LOC: C.ACU 08:05 → C.3E 09:00 → ENRESERV 13:54
PROVIDERS: ADMIT Physical Medicine & Rehabilitation Sports Medicine; ATTEND Physical Medicine & Rehabilitation Sports Medicine
PROC: 0SRD069 Replacement of Left Knee Joint with Oxidized Zirconium on Polyethylene Synthetic Substitute, Cemented, Open Approach (ICD-10-PCS; principal; 2017-08-15 10:50)
DX: M17.12 Unilateral primary osteoarthritis, left knee (principal); Z68.41 Body mass index [BMI] 40.0-44.9, adult; M21.162 Varus deformity, not elsewhere classified, left knee; R42 Dizziness and giddiness; J45.909 Unspecified asthma, uncomplicated; E03.9 Hypothyroidism, unspecified; I51.9 Heart disease, unspecified; G25.81 Restless legs syndrome; G47.33 Obstructive sleep apnea (adult) (pediatric); E66.01 Morbid (severe) obesity due to excess calories; Z87.891 Personal history of nicotine dependence; Z99.89 Dependence on other enabling machines and devices; Z79.82 Long term (current) use of aspirin; Z79.1 Long term (current) use of non-steroidal anti-inflammatories (NSAID); Z79.51 Long term (current) use of inhaled steroids; Z79.890 Hormone replacement therapy; Z79.899 Other long term (current) drug therapy; Z91.09 Other allergy status, other than to drugs and biological substances

== ENCOUNTER → 2017-10-10 | Outpatient (CLI) | payer OTHER ==
[~2017-10-10] MED LIST changes: -BUPIVACAINE 0.5 % 5 MG/1 ML PF 10ML VIAL ONE; -CEFAZOLIN 2000 MG/60 ML D5W 60 ML IV SCH; +CICL8SOL4 TOP; -COEN1CAP17 PEG; +COEN1CAP28 PO; -FISH1CAP3 PO; -LACTATED RINGER'S 1000ML 1,000 ML IV SCH; -LACTATED RINGER'S 1000ML 500 ML IV ONE; -LACTATED RINGER'S 1000ML IV SCH; -MELO7.5T5 PO; +OXYC-57 PO; +ROPI1TAB PO; -ROPIVACAINE 5MG/ML 30 ML 150 MG, BUPIVACAINE/EPINEPHR 0.5% MPF 30 ML, KETOROLAC TROMETH... INFIL SCH; -TRANEXAMIC ACID AMP 1,000 MG in NSS 100ML IV SCH; +WARF2TAB PO; -[UNRECOGNIZED DRUG - REMARK] SCH
== END | disposition home or self-care (01) ==
LOC: C.RDSM 13:01
PROVIDERS: ATTEND Physical Medicine & Rehabilitation Sports Medicine
DX: Z96.652 Presence of left artificial knee joint (principal)

== ENCOUNTER 2017-12-24 15:42 | Emergency (ER) | payer OTHER ==
[~2017-12-24] VITALS: Ht 160 cm; Wt 105.2 kg
[2017-12-24 15:52] VITALS: TEMP 36.9; Ht 160 cm; Wt 105.2 kg
--- NOTE | 2017-12-24 18:01 | EMERGENCY ROOM VISIT NOTE ---
History Report prepared by Judi: Tadeo Lopez Under the Supervision of: Dr. Cherise Peters D.O. First contact with patient: 17:28 Chief Complaint: HYPERTENSION Stated Complaint: HIGH BP, NECK BACK AND BACK PAIN History of Present Illness The patient is a 57 year old female who presents to the Emergency Room with complaints of persistent hypertension since earlier this morning. She states that she took her blood pressure and it was in the 190s. The patient states that she also has a coming and going neck pain for the past week that radiates into the back of her lower head. She additionally notes that she has been having some left sided chest pain that feels like a "stitch" that usually feels achy and dull and is occasionally sharp. The chest pain is not worsened with anything. She additionally notes that she has a history of asthma, though she has been a little more winded recently. The patient reports that she has some numbness in her left fingers, though her right side is fine. She denies any dizziness, vision changes, nausea, vomiting, sweating, back pain, changes in her bowels, and urinary problems. She states that she does not have a history of hypertension, though she did have an episode of it during the election a year ago. The patient notes that she has been having some leg swelling, though she states that she recently had a knee surgery, and she recently finished PT. She denies any history of arm injuries or procedures. The patient has a family history of a CABG. Source of History: patient Onset: this morning Position: other (global) Quality: other (hypertension) Timing: other (persistent) Associated Symptoms: + neck pain, + chest pain, + numbness (left fingers), No nausea, No vomiting, No back pain Review of Systems See HPI for pertinent positives & negatives. A total of 10 systems reviewed and were otherwise negative. Past Medical & Surgical Medical Problems: (1) Left knee DJD Social History Smoking Status: Former Smoker Marital Status: Housing Status: lives with family Occupation Status: employed Current/Historical Medications Scheduled Coenzyme Q10 (Ubidecarenone) (Co Q 10), 100 MG PO DAILY Glucosamine Sulfate (Glucosamine), 1,000 MG PO QAM Levothyroxine Sodium (Levothyroxine Sodium), 125 MCG PO Q2D Levothyroxine Sodium (Levothyroxine Sodium), 137 MCG PO Q2D Mometasone Furoate (Asmanex Twisthaler 60 Met), 2 PUFFS INH QAM Multiple Vitamin (Multi-Day Vitamins), 1 TAB PO QAM Ropinirole (Requip), 2 MG PO HS Ropinirole (Requip), 1 MG PO QD@0800 Scheduled PRN Albuterol Hfa (Ventolin Hfa), 2 PUFFS INH Q6H PRN for Wheezing Loratadine (Claritin), 10 MG PO QAM PRN for Allergy Symptoms Allergies Coded Allergies: Penicillins (Verified Allergy, Unknown, lips swollen, 08/15/17) Propofol (Verified Allergy, Unknown, 'didn't work', 08/15/17) Uncoded Allergies: metals (Allergy, Unknown, pt states allergy to all metal earrings, 07/23/17) including gold and silver; pt states issues are only with earrings; reaction is dermatitis Physical Exam Vital Signs Date Time Temp Pulse Resp B/P (MAP) Pulse Ox O2 Delivery O2 Flow Rate FiO2 12/24/17 22:52 67 149/78 97 12/24/17 21:08 66 147/79 95 Room Air 12/24/17 18:45 76 18 179/82 97 Room Air 12/24/17 17:56 67 12/24/17 17:26 85 18 177/86 98 Room Air 12/24/17 15:52 36.9 76 20 177/80 99 Room Air Physical Exam GENERAL: alert, well appearing, well nourished, no distress, non-toxic. No significant difference in blood pressure measurement for bilateral upper extremities. EYE EXAM: normal conjunctiva, PERRL and EOM's grossly intact OROPHARYNX: no exudate, no erythema, lips, buccal mucosa, and tongue normal and mucous membranes are moist NECK: supple, no nuchal rigidity, no adenopathy, no reproducible tenderness, FROM, no carotid bruits LUNGS: No wheezes rhonchi or rales. Normal chest wall mechanics HEART: no murmurs, S1 normal and S2 normal CHEST: No reproducible chest wall tenderness. ABDOMEN: abdomen soft, non-tender, normo-active bowel sounds, no masses, no rebound or guarding. BACK: Back is symmetrical on inspection and there is no deformity, no midline tenderness, no CVA tenderness. SKIN: no rashes and no bruising UPPER EXTREMITIES: upper extremities are grossly normal. FROM, nml pulses. LOWER EXTREMITIES: No pitting edema. FROM, nml pulses. NEURO EXAM: Normal sensorium, cranial nerves II-XII grossly intact, normal speech, no gross weakness of arms, no gross weakness of legs. Medical Decision & Procedures ER Provider Diagnostic Interpretation: Radiology results have been interpreted by the radiologist and reviewed by me. (CHEST FOR PE) ANGIO WITH CT DOSE: 520.06 mGy.cm HISTORY: Chest pain dyspnea TECHNIQUE: Multiaxial CT images of the chest were performed following the intravenous administration of contrast to evaluate the pulmonary arteries. Maximal intensity projection images were also obtained. A dose lowering technique was utilized adhering to the principles of ALARA. COMPARISON STUDY: None. FINDINGS: There is a normal caliber thoracic aorta with no evidence for dissection. There is no evidence for pulmonary embolus. No pleural effusions. No pneumothorax. The liver and spleen are unremarkable. No mediastinal or hilar lymphadenopathy. The central airways are patent. The lungs are clear. There is a 5 mm pleural-based nodule peripheral aspect right middle lobe image 40 IMPRESSION: No evidence for pulmonary embolus. The lungs are clear. 5 mm circumscribed pleural-based nodule right middle lobe. Follow-up per Fleischner criteria. Please refer to below summary of Fleischner criteria recommendations for follow-up of incidental CT nodules (Jori Payne, Guidelines for management of small pulmonary nodules detected on CT scans: A statement from the Fleischner Society, Radiology 237: [phone].) SOLID NODULES Solitary nodule size: <6 mm * low risk patients: no follow-up needed * high risk patients: optional CT at 12 months Solitary nodule size: 6-8 mm * low risk patients: follow-up at 6-12 months, then consider further follow-up at 18-24 months * high risk patients: initial follow-up CT at 6-12 months and then at 18-24 months if no change Solitary nodule size: >8 mm * either low or high risk patients - consider follow-up CT at 3 months, and/or CT-PET, and/or biopsy Multiple nodules size: <6 mm * low risk patients: no routine follow-up * high risk patients: optional CT at 12 months Multiple nodules size: 6-8 mm * low risk patients: follow-up at 3-6 months, then consider further follow-up at 18-24 months * high risk patients: follow-up at 3-6 months, then at 18-24 months if no change Multiple nodules size: >8 mm * low risk patients: follow-up at 3-6 months, then consider further follow-up at 18-24 months * high risk patients: follow-up at 3-6 months, then at 18-24 months if no change Note: newly detected indeterminate nodule in persons 35 years of age or older. * low risk patients: minimal or absent history of smoking and/or other known risk factors * high risk patients: history of smoking or of other known risk factors (e.g. first degree relative with lung cancer, or exposure to asbestos, radon, uranium) * if a nodule up to 8 mm is partly solid or is ground glass further follow-up is required after 24 months to exclude possible slow growing adenocarcinoma (JENIFFER) SUBSOLID NODULES Solitary pure ground-glass nodule * nodule size <6 mm - no CT follow-up required * nodule size >=6 mm - follow-up CT at 6-12 months, then every 2 years until 5 years Solitary part-solid nodule * nodule size <6 mm - no CT follow-up required * nodule size >=6 mm - follow-up CT at 3-6 months. If unchanged, and solid component remains <6 mm, then annual follow-up for 5 years Multiple subsolid nodules * nodule size <6 mm - follow-up CT at 3-6 months, consider further follow-up at 2 and 4 years if stable * nodule size >=6 mm - follow-up CT at 3-6 months, subsequent management based on the most suspicious nodule(s) The above report was generated using voice recognition software. It may contain grammatical, syntax or spelling errors. Electronically signed by: Gary Greene M.D. 12/24/2017 8:49 PM Dictated Date/Time: 12/24/2017 8:45 PM CHEST ONE VIEW PORTABLE CLINICAL HISTORY: chest pain dyspnea COMPARISON STUDY: No previous studies for comparison. FINDINGS: The bones soft tissues and hemidiaphragms are normal. The cardiomediastinal silhouette is normal. The lungs are clear. The pulmonary vasculature is normal. IMPRESSION: Negative chest. The above report was generated using voice recognition software. It may contain grammatical, syntax or spelling errors. Electronically signed by: Gary Greene M.D. 12/24/2017 6:06 PM Dictated Date/Time: 12/24/2017 6:06 PM Laboratory Results 12/24/17 18:00 Red Blood Count 4.95, Mean Corpuscular Volume 90.7, Mean Corpuscular Hemoglobin 30.3, Mean Corpuscular Hemoglobin Concent 33.4, Mean Platelet Volume 10.3, Neutrophils (%) (Auto) 58.8, Lymphocytes (%) (Auto) 29.4, Monocytes (%) (Auto) 7.0, Eosinophils (%) (Auto) 3.9, Basophils (%) (Auto) 0.6, Neutrophils # (Auto) 5.95, Lymphocytes # (Auto) 2.98, Monocytes # (Auto) 0.71, Eosinophils # (Auto) 0.39, Basophils # (Auto) 0.06 12/24/17 18:00 Test 12/24/17 18:00 12/24/17 18:04 12/24/17 18:45 White Blood Count 10.12 K/uL (4.8-10.8) Red Blood Count 4.95 M/uL (4.2-5.4) Hemoglobin 15.0 g/dL (12.0-16.0) Hematocrit 44.9 % (37-47) Mean Corpuscular Volume 90.7 fL (80-100) Mean Corpuscular Hemoglobin 30.3 pg (25-34) Mean Corpuscular Hemoglobin Concent 33.4 g/dl (32-36) Platelet Count 338 K/uL (130-400) Mean Platelet Volume 10.3 fL (7.4-10.4) Neutrophils (%) (Auto) 58.8 % Lymphocytes (%) (Auto) 29.4 % Monocytes (%) (Auto) 7.0 % Eosinophils (%) (Auto) 3.9 % Basophils (%) (Auto) 0.6 % Neutrophils # (Auto) 5.95 K/uL (1.4-6.5) Lymphocytes # (Auto) 2.98 K/uL (1.2-3.4) Monocytes # (Auto) 0.71 K/uL (0.11-0.59) Eosinophils # (Auto) 0.39 K/uL (0-0.5) Basophils # (Auto) 0.06 K/uL (0-0.2) RDW Standard Deviation 44.8 fL (36.4-46.3) RDW Coefficient of Variation 13.6 % (11.5-14.5) Immature Granulocyte % (Auto) 0.3 % Immature Granulocyte # (Auto) 0.03 K/uL (0.00-0.02) D-Dimer 1810 ug/L FEU (0-500) Anion Gap 8.0 mmol/L (3-11) Est Creatinine Clear Calc Drug Dose 88.9 ml/min Estimated GFR () 92.7 Estimated GFR (Non- 80.0 BUN/Creatinine Ratio 17.5 (10-20) Calcium Level 9.7 mg/dl (8.5-10.1) Magnesium Level 2.4 mg/dl (1.8-2.4) Total Bilirubin 0.2 mg/dl (0.2-1) Aspartate Amino Transf (AST/SGOT) 26 U/L (15-37) Alanine Aminotransferase (ALT/SGPT) 36 U/L (12-78) Alkaline Phosphatase 110 U/L (45-117) Troponin I < 0.015 ng/ml (0-0.045) Total Protein 8.5 gm/dl (6.4-8.2) Albumin 4.4 gm/dl (3.4-5.0) Globulin 4.1 gm/dl (2.5-4.0) Albumin/Globulin Ratio 1.1 (0.9-2) Chemistry Specimen Hemolysis Bedside Lactic Acid Venous 0.70 mmol/L (0.90-1.70) Urine Color YELLOW Urine Appearance CLEAR (CLEAR) Urine pH 5.5 (4.5-7.5) Urine Specific [place] 1.006 (1.000-1.030) Urine Protein NEG (NEG) Urine Glucose (UA) NEG (NEG) Urine Ketones NEG (NEG) Urine Occult Blood NEG (NEG) Urine Nitrite NEG (NEG) Urine Bilirubin NEG (NEG) Urine Urobilinogen NEG (NEG) Urine Leukocyte Esterase NEG (NEG) Laboratory results per my review. Medications Administered Medications (Trade) Dose Ordered Sig/Fish Route Start Time Stop Time Status Last Admin Dose Admin Ketorolac Tromethamine (Toradol Inj) 30 mg NOW STAT IV 12/24/17 21:42 12/24/17 21:43 DC 12/24/17 22:07 30 MG ECG Per My Interpretation Indication: chest pain Rate (beats per minute): 66 Rhythm: sinus rhythm Findings: nonspecific-ST abn (Lateral), no ectopy, other (Normal intervals and normal axis) ED Course 1727: The patient was evaluated in room C1. A complete history and physical exam was performed. 2058: The patient was reevaluated by me. Patient updated on all results, well- appearing at bedside, blood pressure improved. Medical Decision Differential diagnosis: Etiologies such as cardiac ischemia, aortic dissection, pulmonary embolism, pneumonia, pneumothorax, musculoskeletal, infections, pericarditis, myocarditis , esophageal rupture, gastrointestinal, as well as others were entertained. Pt well appearing despite complaints. BP labile, but equal in B/L UE. Normal distal pulses x 4. CTA chest reassuring, labs reassuring. Doubt cardiac or vascular etiology of chest pain. Neck pain seems related to movement, not reproducible, no additional neuro symptoms complained of and none found of exam to otherwise suggest SPRINKLER TENDER or vascular etiology, I do not suspect hypertensive urgency given pt just found elevated BP today which prompted her visit and has been having other symptoms for a longer period of time. No evidence of end organ damage. Discussed with pt monitoring of salt intake, adequate hydration, f/u with PCP to recheck BP, sx to watch/return for, she verbalized understanding and was agreeable with plan. Pt well appearing here, tolerating sips po, ambulating with a steady gait. Medication Reconcilliation Current Medication List: was personally reviewed by me Blood Pressure Screening Patient's blood pressure: Elevated blood pressure Blood pressure disposition: Referred to PCP Impression Primary Impression: Chest pain Additional Impressions: Neck pain Hypertension Scribe Attestation The scribe's documentation has been prepared under my direction and personally reviewed by me in its entirety. I confirm that the note above accurately reflects all work, treatment, procedures, and medical decision making performed by me. Departure Information Dispostion Home / Self-Care Referrals Elvis Walker M.D. (PCP) Patient Instructions My [facility] Additional Instructions Please follow up with your family doctor about your symptoms. Please have them recheck your blood pressure. You may consider occasionally checking her blood pressure yourself. Please keep track of these numbers to discuss with her family doctor. If you have any worsening chest pain, increased neck pain or the pain radiates into your back or causes a headache, you develop dizziness, vision changes, numbness or tingling, trouble breathing, vomiting, fevers, dizziness, swelling in her legs, you've any other new concerns, please return the emergency room. Your family doctor also follow-up a small nonspecific nodule was noted on your CAT scan. Problem Qualifiers Primary Impression: Chest pain Chest pain type: unspecified Qualified Codes: R07.9 - Chest pain, unspecified Additional Impressions: Hypertension Hypertension type: unspecified Qualified Codes: I10 - Essential (primary) hypertension
--- NOTE | 2017-12-24 18:07 | DIAGNOSTIC IMAGING REPORT ---
CHEST ONE VIEW PORTABLE CLINICAL HISTORY: chest pain dyspnea COMPARISON STUDY: No previous studies for comparison. FINDINGS: The bones soft tissues and hemidiaphragms are normal. The cardiomediastinal silhouette is normal. The lungs are clear. The pulmonary vasculature is normal. IMPRESSION: Negative chest. The above report was generated using voice recognition software. It may contain grammatical, syntax or spelling errors. Electronically signed by: Gary Greene M.D. 12/24/2017 6:06 PM Dictated Date/Time: 12/24/2017 6:06 PM
[2017-12-24 18:16] LABS: BASO % 0.6 %; BASO ABS # 0.06 K/uL (0-0.2); EOS % 3.9 %; EOS ABS # 0.39 K/uL (0-0.5); HEMATOCRIT 44.9 % (37-47); IG# 0.03 K/uL (0.00-0.02); LYMPH % 29.4 %; LYMPH ABS # 2.98 K/uL (1.2-3.4); MEAN CELL VOLUME 90.7 fL (80-100); MEAN CORPUSCULAR HEMOGLOBIN 30.3 pg (25-34); MEAN CORPUSCULAR HGB CONC 33.4 g/dl (32-36); MEAN PLATELET VOLUME 10.3 fL (7.4-10.4); MONO ABS # 0.71 K/uL (0.11-0.59); NEUT % 58.8 %; NEUT ABS # 5.95 K/uL (1.4-6.5); PLATELET COUNT 338 K/uL (130-400); RED CELL DISTRIBUTION WIDTH CV 13.6 % (11.5-14.5); RED CELL DISTRIBUTION WIDTH SD 44.8 fL (36.4-46.3); WHITE BLOOD COUNT 10.12 K/uL (4.8-10.8)
[2017-12-24 19:04] LABS: ALBUMIN 4.4 gm/dl (3.4-5.0); ALKALINE PHOSPHATASE 110 U/L (45-117); ALT/SGPT 36 U/L (12-78); AST/SGOT 26 U/L (15-37); BLOOD UREA NITROGEN 14 mg/dl (7-18); CALCIUM 9.7 mg/dl (8.5-10.1); CARBON DIOXIDE 27 mmol/L (21-32); CREATININE 0.82 mg/dl (0.60-1.20); GLUCOSE 88 mg/dl (70-99); POTASSIUM 3.9 mmol/L (3.5-5.1); SODIUM 139 mmol/L (136-145); TOTAL PROTEIN 8.5 gm/dl (6.4-8.2)
[2017-12-24] MEDS ORDERED: LEVO125T5 PO (19:12)
[2017-12-24] MEDS ORDERED: COEN1CAP17 PO (19:12)
[2017-12-24] MEDS ORDERED: ROPI2TAB6 PO (19:12)
[2017-12-24] MEDS ORDERED: LEVO137T3 PO (19:12)
[2017-12-24] MEDS ORDERED: OPTIRAY 320 IV PRN (20:45)
--- NOTE | 2017-12-24 20:51 | DIAGNOSTIC IMAGING REPORT ---
(CHEST FOR PE) ANGIO WITH CT DOSE: 520.06 mGy.cm HISTORY: Chest pain dyspnea TECHNIQUE: Multiaxial CT images of the chest were performed following the intravenous administration of contrast to evaluate the pulmonary arteries. Maximal intensity projection images were also obtained. A dose lowering technique was utilized adhering to the principles of ALARA. COMPARISON STUDY: None. FINDINGS: There is a normal caliber thoracic aorta with no evidence for dissection. There is no evidence for pulmonary embolus. No pleural effusions. No pneumothorax. The liver and spleen are unremarkable. No mediastinal or hilar lymphadenopathy. The central airways are patent. The lungs are clear. There is a 5 mm pleural-based nodule peripheral aspect right middle lobe image 40 IMPRESSION: No evidence for pulmonary embolus. The lungs are clear. 5 mm circumscribed pleural-based nodule right middle lobe. Follow-up per Fleischner criteria. Please refer to below summary of Fleischner criteria recommendations for follow-up of incidental CT nodules (Jori Payne, Guidelines for management of small pulmonary nodules detected on CT scans: A statement from the Fleischner Society, Radiology 237: [phone].) SOLID NODULES Solitary nodule size: <6 mm * low risk patients: no follow-up needed * high risk patients: optional CT at 12 months Solitary nodule size: 6-8 mm * low risk patients: follow-up at 6-12 months, then consider further follow-up at 18-24 months * high risk patients: initial follow-up CT at 6-12 months and then at 18-24 months if no change Solitary nodule size: >8 mm * either low or high risk patients - consider follow-up CT at 3 months, and/or CT-PET, and/or biopsy Multiple nodules size: <6 mm * low risk patients: no routine follow-up * high risk patients: optional CT at 12 months Multiple nodules size: 6-8 mm * low risk patients: follow-up at 3-6 months, then consider further follow-up at 18-24 months * high risk patients: follow-up at 3-6 months, then at 18-24 months if no change Multiple nodules size: >8 mm * low risk patients: follow-up at 3-6 months, then consider further follow-up at 18-24 months * high risk patients: follow-up at 3-6 months, then at 18-24 months if no change Note: newly detected indeterminate nodule in persons 35 years of age or older. * low risk patients: minimal or absent history of smoking and/or other known risk factors * high risk patients: history of smoking or of other known risk factors (e.g. first degree relative with lung cancer, or exposure to asbestos, radon, uranium) * if a nodule up to 8 mm is partly solid or is ground glass further follow-up is required after 24 months to exclude possible slow growing adenocarcinoma (JENIFFER) SUBSOLID NODULES Solitary pure ground-glass nodule * nodule size <6 mm - no CT follow-up required * nodule size >=6 mm - follow-up CT at 6-12 months, then every 2 years until 5 years Solitary part-solid nodule * nodule size <6 mm - no CT follow-up required * nodule size >=6 mm - follow-up CT at 3-6 months. If unchanged, and solid component remains <6 mm, then annual follow-up for 5 years Multiple subsolid nodules * nodule size <6 mm - follow-up CT at 3-6 months, consider further follow-up at 2 and 4 years if stable * nodule size >=6 mm - follow-up CT at 3-6 months, subsequent management based on the most suspicious nodule(s) The above report was generated using voice recognition software. It may contain grammatical, syntax or spelling errors. Electronically signed by: Gary Greene M.D. 12/24/2017 8:49 PM Dictated Date/Time: 12/24/2017 8:45 PM
[2017-12-24] MEDS ORDERED: KETOROLAC TROMETHAMINE 30 MG/ML VIAL IV STA (21:42)
[2017-12-24 22:52] VITALS: BP 149/78; PULSE 67; O2SAT 97
== END 2017-12-24 22:53 | disposition home or self-care (01) ==
LOC: C.EDB 15:44 → C.EDC 22:53
DX: R07.9 Chest pain, unspecified (principal); M54.2 Cervicalgia; I10 Essential (primary) hypertension; Z87.891 Personal history of nicotine dependence; Z88.0 Allergy status to penicillin

== ENCOUNTER → 2017-12-28 | Outpatient (CLI) | payer OTHER ==
[~2017-12-28] MED LIST changes: -ASPI-232 PO; -CICL8SOL4 TOP; +COEN1CAP17 PO; -COEN1CAP28 PO; -HYDR2.5L TOP; +LEVO125T5 PO; -OXYC-57 PO; -ROPI1TAB PO; -TRIA1SPR4; -VGFVS/24 VAGRING; -WARF2TAB PO
--- NOTE | 2017-12-28 08:42 | DIAGNOSTIC IMAGING REPORT ---
VENOUS DOPPLER LWR EXT BILA HISTORY: Pain. Edema. ELEVATED D DIMER COMPARISON STUDY: None. FINDINGS: There is normal compressibility, flow, and augmentation within the bilateral lower extremity deep venous systems. IMPRESSION: No DVT within the right or left lower extremity. The above report was generated using voice recognition software. It may contain grammatical, syntax or spelling errors. Electronically signed by: Gary Greene M.D. 12/28/2017 8:41 AM Dictated Date/Time: 12/28/2017 8:40 AM
== END | disposition home or self-care (01) ==
LOC: C.ULTRBC 08:06
PROVIDERS: ATTEND Family Medicine
DX: R79.89 Other specified abnormal findings of blood chemistry (principal)